=== PATIENT | female | born 1960 | race Caucasian/White ===

== ENCOUNTER 2018-10-19 10:54 | Emergency (ER) | payer BC ==
[2018-10-19] MEDS: DEXAMETHASONE 10 MG/ML 1 ML INJ IM (11:57)
[2018-10-19] MEDS: KETOROLAC 30 MG INJ IM (11:57)
== END 2018-10-19 13:00 | disposition home or self-care (01) ==
LOC: FTE 10:54
DX: M54.5 Low back pain (principal); E11.9 Type 2 diabetes mellitus without complications; Z87.891 Personal history of nicotine dependence
CPT/HCPCS: 96372; 99284-25